=== PATIENT | male | born 1965 | race Caucasian/White ===

== ENCOUNTER 2016-10-17 01:00 | Inpatient (IN) | payer OTHER, MEDICAID ==
[~2016-10-17] VITALS: Ht 180.3 cm; Wt 94.8 kg
[~2016-10-17 01:00] MED LIST: LABE200T18 PO; TAM04C PO
[2016-10-17 01:44] LABS: Basophils # (auto) 0.1 uL; Basophils % (auto) 1.4 % (0.0-2.0); Eosinophils # (auto) 0 uL; Eosinophils % (auto) 0.4 % (0.0-7.0); Hematocrit 46.6 % (41.0-53.0); Hemoglobin 14.8 g/dL (13.5-17.5); Lymphocytes # (auto) 1.5 uL; Lymphocytes % (auto) 16.7 % (10.0-50.0); Mean Corpuscular Hgb Conc. 31.8 g/dL (32.0-36.0); Mean Corpuscular Volume 91.2 fL (80.0-100.0); Mean Platelet Volume 8.4 fL (7.4-10.4); Monocytes # (auto) 0.7 uL; Monocytes % (auto) 8.3 % (0.0-12.0); Neutrophils # (auto) 6.4 uL; Neutrophils % (auto) 73.2 % (37.0-80.0); Platelet Count (auto) 235 10^3/uL (140-450); White Blood Cell 8.7 10^3/uL (4.4-10.8)
[2016-10-17 02:15] LABS: Anion Gap 10 (5-15); Aspartate Aminotransferase 209 U/L (15-37); BUN/Creatinine Ratio 32.2; Blood Urea Nitrogen 37 mg/dL (7-18); Calcium 7.8 mg/dL (8.5-10.1); Carbon Dioxide 25 mmol/L (21-32); Chloride 102 mmol/L (98-107); GFR African American 86 mL/min; GFR Non-African American 71 mL/min; Glucose 128 mg/dL (74-106); Magnesium 2.1 mg/dL (1.6-2.6); Potassium 4.2 mmol/L (3.5-5.1); Sodium 137 mmol/L (136-145)
[2016-10-17 02:18] LABS: Alkaline Phosphatase 437 U/L (45-117); Bilirubin, Total 2.2 mg/dL (0.2-1.0); Total Protein 5.5 g/dL (6.4-8.2)
[2016-10-17] MEDS ORDERED: ONDANSETRON HCL 4 MG/2 ML VIAL ONE (04:27)
[2016-10-17] MEDS ORDERED: ONDANSETRON HCL 4 MG/2 ML VIAL IV ONE (04:30)
[2016-10-17] MEDS ORDERED: LEVOFLOXACIN 500MG 100 ML IV ONE (07:00)
[2016-10-17] MEDS ORDERED: SODIUM CHLORIDE 0.9% 500 ML IV ONE (07:00)
[2016-10-17] MEDS ORDERED: NITROGLYCERIN 0.4 MG SL TAB SL PRN (08:30)
[2016-10-17] MEDS ORDERED: VANCOMYCIN PER PHARMACY 0 MG IV SCH (08:30)
[2016-10-17] MEDS ORDERED: MORPHINE SULF INJ 2 MG/ML SYRINGE 1ML IV PRN (08:30)
[2016-10-17] MEDS ORDERED: VANCOMYCIN 1GM/250ML D5W 250 ML IV SCH (10:00)
[2016-10-17 10:15] VITALS: BP 116/78
[2016-10-17 10:20] VITALS: BP 116/78
[2016-10-17] MEDS ORDERED: IOHEXOL 350 MG/ML 100ML IJ ONE (10:21)
[2016-10-17] MEDS: ENOXAPARIN SOD 40 MG/0.4 ML SYRINGE SC SCH (11:14)
[2016-10-17] MEDS ORDERED: PIPERACILLIN-TAZOB 3.375GM 100 ML IV SCH (12:00)
[2016-10-17 13:00] VITALS: BP 114/67
[2016-10-17] MEDS: VANCOMYCIN 1GM/250ML D5W 250 ML IV SCH (13:22)
[2016-10-17] MEDS ORDERED: INFLUENZA QUAD 2016-2017 0.5 ML SYRG IM ONE ×2 (13:30)
[2016-10-17] MEDS ORDERED: ALPR1TAB2 PO (16:51)
[2016-10-17 17:00] VITALS: BP 115/58
[2016-10-17] MEDS: PANTOPRAZOLE SODIUM 40 MG/10 ML VIAL IV SCH (17:14)
[2016-10-17] MEDS: ALPRAZolam 0.5 MG TAB PO PRN ×2 (17:17→23:18)
[2016-10-17] MEDS ORDERED: TAMSULOSIN HYDROCHLORIDE 0.4 MG CAP PO SCH (18:00)
[2016-10-17 22:00] VITALS: BP 109/73
[2016-10-17] MEDS ORDERED: ZOLPIDEM TARTRATE 5 MG TAB PO PRN (22:15)
[2016-10-18] MEDS: VANCOMYCIN 1GM/250ML D5W 250 ML IV SCH ×2 (01:44→13:00)
[2016-10-18 05:00] VITALS: BP 90/45
[2016-10-18 05:50] LABS: Basophils # (auto) 0.1 uL; Basophils % (auto) 0.4 % (0.0-2.0); Eosinophils # (auto) 0 uL; Hematocrit 47.2 % (41.0-53.0); Hemoglobin 15.3 g/dL (13.5-17.5); Lymphocytes # (auto) 1.9 uL; Lymphocytes % (auto) 15.9 % (10.0-50.0); Mean Corpuscular Hemoglobin 29.7 pg (28.0-32.0); Mean Corpuscular Hgb Conc. 32.4 g/dL (32.0-36.0); Mean Corpuscular Volume 91.7 fL (80.0-100.0); Mean Platelet Volume 9.2 fL (7.4-10.4); Monocytes # (auto) 1.6 uL; Monocytes % (auto) 12.8 % (0.0-12.0); Neutrophils # (auto) 8.7 uL; Neutrophils % (auto) 70.9 % (37.0-80.0); Platelet Count (auto) 253 10^3/uL (140-450); Red Cell Distribution Width 15.2 % (11.6-16.0); White Blood Cell 12.2 10^3/uL (4.4-10.8)
[2016-10-18 06:11] LABS: Albumin 2.9 g/dL (3.4-5.0); Calcium 7.9 mg/dL (8.5-10.1); Potassium 4.6 mmol/L (3.5-5.1)
[2016-10-18 06:13] LABS: BUN/Creatinine Ratio 25.3
[2016-10-18 06:28] LABS: Bilirubin, Total 4.7 mg/dL (0.2-1.0); Total Protein 5.5 g/dL (6.4-8.2)
[2016-10-18 09:00] VITALS: BP 102/70
[2016-10-18] MEDS ORDERED: LEVOFLOXACIN 500MG 100 ML IV SCH (10:00)
[2016-10-18] MEDS: ENOXAPARIN SOD 40 MG/0.4 ML SYRINGE SC SCH ×2 (10:00→15:18)
[2016-10-18] MEDS: ALPRAZolam 0.5 MG TAB PO PRN ×2 (11:30→17:57)
[2016-10-18] MEDS ORDERED: SODIUM CHLORIDE 0.9% 1,000 ML IV ONE (12:00)
[2016-10-18 13:00] VITALS: BP 131/84
[2016-10-18] MEDS: PANTOPRAZOLE SODIUM 40 MG/10 ML VIAL IV SCH (15:18)
[2016-10-18 15:59] VITALS: BP 131/84
[2016-10-18 17:00] VITALS: BP 124/92
== END 2016-10-18 18:05 | disposition home or self-care (01) | DRG 603 ==
LOC: ER 01:05 → TELE 01:06 → TELE-WESTW 09:49
PROVIDERS: ADMIT Internal Medicine; ATTEND Internal Medicine
PROC: 3E0234Z Introduction of Serum, Toxoid and Vaccine into Muscle, Percutaneous Approach (ICD-10-PCS; principal; 2016-10-17)
DX: L03.115 Cellulitis of right lower limb (principal); F15.10 Other stimulant abuse, uncomplicated; R60.0 Localized edema; L03.116 Cellulitis of left lower limb; F17.210 Nicotine dependence, cigarettes, uncomplicated; F41.9 Anxiety disorder, unspecified; I10 Essential (primary) hypertension; Z83.3 Family history of diabetes mellitus; Z88.0 Allergy status to penicillin; Z79.899 Other long term (current) drug therapy; Z98.890 Other specified postprocedural states; Z90.89 Acquired absence of other organs; Z59.0 Homelessness; Z80.9 Family history of malignant neoplasm, unspecified; Z23 Encounter for immunization
CPT/HCPCS: 36415; 75635; 80053; 80320; 83605; 83735; 85025; 85379; 87040; 87081; 87205; 93971; 94761; 96365; 96375; C9113; J1956; J2405

== ENCOUNTER 2016-10-29 16:26 | Inpatient (IN) | payer OTHER, MEDICAID ==
[~2016-10-29] VITALS: Ht 180.3 cm; Wt 91.4 kg
[~2016-10-29 16:26] MED LIST changes: +ALPR1TAB2 PO
[2016-10-29] MEDS ORDERED: VANCOMYCIN 1GM/250ML D5W 250 ML IV ONE ×2 (16:45→21:07)
[2016-10-29] MEDS ORDERED: LEVOFLOXACIN 500MG 100 ML IV ONE (16:45)
[2016-10-29 17:34] LABS: Basophils # (auto) 0 uL; Basophils % (auto) 0.6 % (0.0-2.0); Eosinophils # (auto) 0 uL; Eosinophils % (auto) 0.3 % (0.0-7.0); Hematocrit 46.6 % (41.0-53.0); Lymphocytes # (auto) 1.7 uL; Lymphocytes % (auto) 19.1 % (10.0-50.0); Mean Corpuscular Hemoglobin 29.1 pg (28.0-32.0); Mean Corpuscular Hgb Conc. 32.2 g/dL (32.0-36.0); Mean Corpuscular Volume 90.2 fL (80.0-100.0); Mean Platelet Volume 8.9 fL (7.4-10.4); Monocytes # (auto) 0.8 uL; Monocytes % (auto) 9.5 % (0.0-12.0); Neutrophils # (auto) 6.3 uL; Neutrophils % (auto) 70.5 % (37.0-80.0); Platelet Count (auto) 203 10^3/uL (140-450); Red Cell Distribution Width 15.4 % (11.6-16.0); White Blood Cell 8.9 10^3/uL (4.4-10.8)
[2016-10-29 17:52] LABS: Albumin 2.9 g/dL (3.4-5.0); BUN/Creatinine Ratio 30.8; Potassium 4.7 mmol/L (3.5-5.1)
[2016-10-29 17:55] LABS: Bilirubin, Total 1.3 mg/dL (0.2-1.0); Total Protein 6.9 g/dL (6.4-8.2)
[2016-10-29 18:23] LABS: B-Type Natriuretic Peptide 3216.79 pg/mL (0-100); Temperature: 21.9 C (20.0-25.0)
[2016-10-29] MEDS ORDERED: NITROGLYCERIN 0.4 MG SL TAB SL PRN (18:45)
[2016-10-29] MEDS ORDERED: FUROSEMIDE 40 MG/4 ML VIAL ONE (21:00)
[2016-10-29] MEDS ORDERED: LEVOFLOXACIN 750MG 150 ML IV ONE (21:00)
[2016-10-29] MEDS: VANCOMYCIN 1GM/250ML D5W 250 ML IV SCH (21:16)
[2016-10-29] MEDS: FUROSEMIDE 40 MG/4 ML VIAL IV SCH (21:19)
[2016-10-29] MEDS ORDERED: ENOXAPARIN SOD 40 MG/0.4 ML SYRINGE SC ONE (22:00)
[2016-10-29] MEDS ORDERED: ONDANSETRON HCL 4 MG/2 ML VIAL IV PRN (22:15)
[2016-10-29 23:07] VITALS: BP 110/62
[2016-10-30] MEDS ORDERED: ONDANSETRON HCL 4 MG/2 ML VIAL IV ONE
[2016-10-30] MEDS ORDERED: CLIN1CAP4 PO (00:59)
[2016-10-30] MEDS ORDERED: NOR5T PO (00:59)
[2016-10-30] MEDS ORDERED: LEVO-28 PO (00:59)
[2016-10-30] MEDS ORDERED: LOR05T PO (00:59)
[2016-10-30] MEDS: MORPHINE SULF INJ 2 MG/ML SYRINGE 1ML IV PRN ×4 (03:10→19:48)
[2016-10-30 05:00] VITALS: BP 113/68
[2016-10-30] MEDS: FUROSEMIDE 40 MG/4 ML VIAL IV SCH ×2 (05:39→17:36)
[2016-10-30 06:26] LABS: Basophils # (auto) 0.1 uL; Basophils % (auto) 1.1 % (0.0-2.0); Eosinophils # (auto) 0 uL; Eosinophils % (auto) 0.6 % (0.0-7.0); Hematocrit 38.4 % (41.0-53.0); Hemoglobin 12.5 g/dL (13.5-17.5); Lymphocytes % (auto) 14.1 % (10.0-50.0); Mean Corpuscular Hemoglobin 28.9 pg (28.0-32.0); Mean Corpuscular Hgb Conc. 32.5 g/dL (32.0-36.0); Mean Corpuscular Volume 88.8 fL (80.0-100.0); Mean Platelet Volume 8.4 fL (7.4-10.4); Monocytes # (auto) 0.7 uL; Neutrophils # (auto) 5.5 uL; Neutrophils % (auto) 74.2 % (37.0-80.0); Platelet Count (auto) 181 10^3/uL (140-450); Red Cell Distribution Width 15.2 % (11.6-16.0); White Blood Cell 7.4 10^3/uL (4.4-10.8)
[2016-10-30 06:44] LABS: Albumin 2.3 g/dL (3.4-5.0); BUN/Creatinine Ratio 25.6; Calcium 7.2 mg/dL (8.5-10.1); Potassium 3.7 mmol/L (3.5-5.1)
[2016-10-30 06:47] LABS: Bilirubin, Total 1.2 mg/dL (0.2-1.0); Total Protein 5.3 g/dL (6.4-8.2)
[2016-10-30] MEDS: LORazepam 0.5 MG TAB PO PRN (07:30)
[2016-10-30 09:00] VITALS: BP 114/67
[2016-10-30] MEDS: VANCOMYCIN 1GM/250ML D5W 250 ML IV SCH ×2 (09:15→19:48)
[2016-10-30] MEDS: ENOXAPARIN SOD 40 MG/0.4 ML SYRINGE SC SCH (09:15)
[2016-10-30] MEDS: VANCOMYCIN PER PHARMACY 0 MG IV SCH (09:15)
[2016-10-30 13:00] VITALS: BP 88/59
[2016-10-30] MEDS ORDERED: DIGOXIN 0.25 MG TAB PO ONE (16:45)
[2016-10-30 16:49] VITALS: BP 108/79
[2016-10-30] MEDS ORDERED: SPIRONOLACTONE 25 MG TAB PO ONE (17:15)
[2016-10-30 21:44] VITALS: BP 103/55
[2016-10-31 04:37] VITALS: BP 115/73
[2016-10-31] MEDS: SPIRONOLACTONE 25 MG TAB PO SCH ×2 (05:04→18:52)
[2016-10-31] MEDS: MORPHINE SULF INJ 2 MG/ML SYRINGE 1ML IV PRN ×2 (05:04→19:01)
[2016-10-31] MEDS: FUROSEMIDE 40 MG/4 ML VIAL IV SCH ×2 (05:05→19:01)
[2016-10-31 05:38] LABS: Basophils # (auto) 0 uL; Basophils % (auto) 0.4 % (0.0-2.0); Eosinophils # (auto) 0 uL; Eosinophils % (auto) 0.4 % (0.0-7.0); Hematocrit 39.1 % (41.0-53.0); Hemoglobin 12.6 g/dL (13.5-17.5); Lymphocytes # (auto) 1.4 uL; Lymphocytes % (auto) 17.1 % (10.0-50.0); Mean Corpuscular Hemoglobin 28.8 pg (28.0-32.0); Mean Corpuscular Hgb Conc. 32.1 g/dL (32.0-36.0); Mean Corpuscular Volume 89.8 fL (80.0-100.0); Mean Platelet Volume 8.4 fL (7.4-10.4); Monocytes % (auto) 11.5 % (0.0-12.0); Neutrophils # (auto) 5.9 uL; Neutrophils % (auto) 70.6 % (37.0-80.0); Platelet Count (auto) 178 10^3/uL (140-450); Red Cell Distribution Width 15.4 % (11.6-16.0); White Blood Cell 8.3 10^3/uL (4.4-10.8)
[2016-10-31 05:59] LABS: Calcium 7.4 mg/dL (8.5-10.1); Potassium 3.8 mmol/L (3.5-5.1)
[2016-10-31 06:01] LABS: BUN/Creatinine Ratio 30.8
[2016-10-31] MEDS: VANCOMYCIN 1GM/250ML D5W 250 ML IV SCH ×2 (08:00→20:02)
[2016-10-31 09:00] VITALS: BP 92/62
[2016-10-31] MEDS: VANCOMYCIN PER PHARMACY 0 MG IV SCH (10:00)
[2016-10-31] MEDS: DIGOXIN 0.25 MG TAB PO SCH (10:25)
[2016-10-31] MEDS: ENOXAPARIN SOD 40 MG/0.4 ML SYRINGE SC SCH (11:35)
[2016-10-31] MEDS ORDERED: NICOTINE 14 MG/24HR TOPICAL PATCH TD ONE (12:15)
[2016-10-31 12:57] VITALS: BP 108/65
[2016-10-31] MEDS: LORazepam 0.5 MG TAB PO PRN (14:21)
[2016-10-31 16:00] VITALS: BP 99/67
[2016-10-31 17:08] VITALS: BP 97/71
[2016-10-31 20:35] VITALS: BP 115/75
[2016-11-01 04:38] VITALS: BP 102/66
[2016-11-01] MEDS: SPIRONOLACTONE 25 MG TAB PO SCH ×2 (05:40→16:49)
[2016-11-01] MEDS: FUROSEMIDE 40 MG/4 ML VIAL IV SCH ×2 (05:40→16:50)
[2016-11-01 06:13] LABS: Basophils # (auto) 0 uL; Basophils % (auto) 0.6 % (0.0-2.0); Eosinophils # (auto) 0.1 uL; Eosinophils % (auto) 0.8 % (0.0-7.0); Hemoglobin 13.3 g/dL (13.5-17.5); Lymphocytes # (auto) 1.7 uL; Lymphocytes % (auto) 21.6 % (10.0-50.0); Mean Corpuscular Hemoglobin 29.1 pg (28.0-32.0); Mean Corpuscular Hgb Conc. 32.3 g/dL (32.0-36.0); Mean Platelet Volume 8.9 fL (7.4-10.4); Monocytes % (auto) 12.4 % (0.0-12.0); Neutrophils # (auto) 5.1 uL; Neutrophils % (auto) 64.6 % (37.0-80.0); Platelet Count (auto) 184 10^3/uL (140-450); Red Cell Distribution Width 15.3 % (11.6-16.0); White Blood Cell 7.9 10^3/uL (4.4-10.8)
[2016-11-01 06:32] LABS: BUN/Creatinine Ratio 33.7; Calcium 7.8 mg/dL (8.5-10.1); Potassium 3.6 mmol/L (3.5-5.1)
[2016-11-01 08:00] VITALS: BP 102/68
[2016-11-01 08:34] VITALS: BP 102/66
[2016-11-01] MEDS: VANCOMYCIN 1GM/250ML D5W 250 ML IV SCH ×2 (08:51→20:45)
[2016-11-01] MEDS: MORPHINE SULF INJ 2 MG/ML SYRINGE 1ML IV PRN ×3 (08:51→23:40)
[2016-11-01] MEDS: ENOXAPARIN SOD 40 MG/0.4 ML SYRINGE SC SCH (08:52)
[2016-11-01] MEDS: NICOTINE 14 MG/24HR TOPICAL PATCH TD SCH (08:52)
[2016-11-01] MEDS: DIGOXIN 0.25 MG TAB PO SCH (08:52)
[2016-11-01] MEDS: VANCOMYCIN PER PHARMACY 0 MG IV SCH (10:00)
[2016-11-01] MEDS: LORazepam 0.5 MG TAB PO PRN ×2 (12:09→23:39)
[2016-11-01 13:00] VITALS: BP 99/67
[2016-11-01 17:00] VITALS: BP 98/74
[2016-11-01 21:43] VITALS: BP 105/73
[2016-11-02 04:38] VITALS: BP 120/81
[2016-11-02] MEDS: SPIRONOLACTONE 25 MG TAB PO SCH (06:00)
[2016-11-02] MEDS: FUROSEMIDE 40 MG/4 ML VIAL IV SCH (06:54)
[2016-11-02] MEDS: MORPHINE SULF INJ 2 MG/ML SYRINGE 1ML IV PRN (06:54)
[2016-11-02 08:00] VITALS: BP 103/66
[2016-11-02] MEDS: VANCOMYCIN 1GM/250ML D5W 250 ML IV SCH (08:16)
[2016-11-02] MEDS: ENOXAPARIN SOD 40 MG/0.4 ML SYRINGE SC SCH (09:57)
[2016-11-02] MEDS: DIGOXIN 0.25 MG TAB PO SCH (09:58)
[2016-11-02] MEDS: NICOTINE 14 MG/24HR TOPICAL PATCH TD SCH (09:58)
[2016-11-02] MEDS: VANCOMYCIN PER PHARMACY 0 MG IV SCH (10:00)
[2016-11-02] MEDS ORDERED: ADENOSINE 77 MG in GIVE UN-DILUTED 0 ML IV ONE (10:45)
[2016-11-02 12:00] VITALS: BP 117/80
[2016-11-02 16:30] VITALS: BP 104/62
[2016-11-02 19:15] VITALS: BP 104/62
== END 2016-11-02 19:15 | disposition home or self-care (01) | DRG 314 ==
LOC: EDBD 16:26 → ER 16:34 → TELE-WESTW 16:35 → ER 17:01 → TELE-WESTW 19:53
PROVIDERS: ADMIT Internal Medicine; ATTEND Internal Medicine
DX: I42.0 Dilated cardiomyopathy (principal); I50.43 Acute on chronic combined systolic (congestive) and diastolic (congestive) heart failure; F11.20 Opioid dependence, uncomplicated; F13.20 Sedative, hypnotic or anxiolytic dependence, uncomplicated; F17.210 Nicotine dependence, cigarettes, uncomplicated; F41.9 Anxiety disorder, unspecified; N40.0 Benign prostatic hyperplasia without lower urinary tract symptoms; K74.60 Unspecified cirrhosis of liver; F12.10 Cannabis abuse, uncomplicated; F15.10 Other stimulant abuse, uncomplicated; F10.21 Alcohol dependence, in remission; I11.0 Hypertensive heart disease with heart failure; I25.2 Old myocardial infarction; Z83.3 Family history of diabetes mellitus; Z90.89 Acquired absence of other organs; Z59.0 Homelessness; Z88.0 Allergy status to penicillin; Z91.19 Patient's noncompliance with other medical treatment and regimen
CPT/HCPCS: 36415; 78452; 80048; 80053; 80202; 82565; 83880; 84484; 85025; 85049; 87040; 87205; 93005; 93017; 93306; 93970; J0153; J1956

== ENCOUNTER 2016-11-17 15:14 | Emergency (ER) | payer OTHER, MEDICAID ==
[~2016-11-17] VITALS: Ht 180.3 cm; Wt 83.9 kg
[~2016-11-17 15:14] MED LIST changes: -ALPR1TAB2 PO; -LABE200T18 PO; +LOR05T PO; +NOR5T PO; -TAM04C PO
[2016-11-17 16:23] LABS: Basophils # (auto) 0.1 uL; Basophils % (auto) 1.4 % (0.0-2.0); Eosinophils # (auto) 0 uL; Eosinophils % (auto) 0.6 % (0.0-7.0); Hemoglobin 14.3 g/dL (13.5-17.5); Lymphocytes % (auto) 24.5 % (10.0-50.0); Mean Corpuscular Hemoglobin 27.6 pg (28.0-32.0); Mean Corpuscular Hgb Conc. 31.2 g/dL (32.0-36.0); Mean Corpuscular Volume 88.4 fL (80.0-100.0); Mean Platelet Volume 9.6 fL (7.4-10.4); Monocytes # (auto) 0.7 uL; Monocytes % (auto) 8.3 % (0.0-12.0); Neutrophils # (auto) 5.3 uL; Neutrophils % (auto) 65.2 % (37.0-80.0); Platelet Count (auto) 260 10^3/uL (140-450); Red Cell Distribution Width 15.6 % (11.6-16.0); White Blood Cell 8.2 10^3/uL (4.4-10.8)
[2016-11-17 16:27] LABS: Albumin 3.3 g/dL (3.4-5.0); BUN/Creatinine Ratio 33.6; Calcium 8.3 mg/dL (8.5-10.1); Magnesium 2.1 mg/dL (1.6-2.6); Total Protein 6.5 g/dL (6.4-8.2)
[2016-11-17] MEDS ORDERED: ASPirin 81 mg TAB PO ONE (16:45)
[2016-11-17 17:02] LABS: Urine RBC None Seen /hpf (0 - 3)
[2016-11-17 17:36] LABS: Urine Bilirubin Negative (Negative); Urine Blood Negative /uL (Negative); Urine Color Yellow (Yellow); Urine Glucose Normal (Normal); Urine Ketone Negative (Negative); Urine Mucus FEW (None Seen); Urine Nitrite Negative (Negative); Urine Squamous Epithelial Cell FEW /hpf (<5); Urine Urobilinogen Normal (Negative); Urine pH 5.5 (5.0-8.0)
[2016-11-17 18:42] VITALS: BP 112/70
== END 2016-11-17 19:19 | disposition home or self-care (01) ==
LOC: EDUNIT# 15:14 → ER 15:18
DX: R07.9 Chest pain, unspecified (principal); F41.9 Anxiety disorder, unspecified; F17.210 Nicotine dependence, cigarettes, uncomplicated; F12.10 Cannabis abuse, uncomplicated; F15.10 Other stimulant abuse, uncomplicated; F11.10 Opioid abuse, uncomplicated; I11.0 Hypertensive heart disease with heart failure; I50.9 Heart failure, unspecified; Z88.0 Allergy status to penicillin
CPT/HCPCS: 36415; 71010; 80053; 81001; 83735; 84484; 85025; 93005; 94761; 99285; G0434